=== PATIENT | male | born 1995 | race Caucasian/White ===

== ENCOUNTER 2019-01-27 11:41 | Emergency (ER) | payer OTHER ==
[2019-01-27 11:55] VITALS: BMI 25.1
[2019-01-27 11:57] VITALS: RESP 18
[2019-01-27] MEDS ORDERED: Sodium Chloride 0.9% 1,000 ML IV ONE ×2 (12:17→12:45)
[2019-01-27 12:46] LABS: EOS % 0.2 % (0.0-4.0); HEMOGLOBIN 15.8 g/dL (12.0-18.0); LYMPH # 0.4 K/uL (1.0-4.3); MEAN CELL VOLUME 95.9 fl (80.0-94.0); MEAN CORPUSCULAR HEMOGLOBIN 32.1 pg (27.0-31.0); MEAN CORPUSCULAR HGB CONC 33.4 g/dL (33.0-37.0); MEAN PLATELET VOLUME 8.6 fl (7.2-11.7); MONO # 0.4 K/uL (0.0-0.8); MONO % 7.3 % (0.0-10.0); NEUT # 4.7 K/uL (1.8-7.0); NEUT % 84.5 % (50.0-75.0); PLATELET COUNT 226 K/uL (130-400); RBC 4.92 Mil/uL (4.40-5.90); RED CELL DISTRIBUTION WIDTH 12.3 % (11.5-14.5); WHITE BLOOD COUNT 5.6 K/uL (4.8-10.8)
[2019-01-27 12:47] LABS: URINE BILIRUBIN NEGATIVE (NEGATIVE); URINE BLOOD NEGATIVE (NEGATIVE); URINE CLARITY CLEAR (Clear); URINE COLOR YELLOW (YELLOW); URINE GLUCOSE (UA) NEG (NEGATIVE); URINE LEUKOCYTE ESTERASE NEG Leu/uL (Negative); URINE PROTEIN NEGATIVE (NEGATIVE); URINE UROBILINOGEN 0.2-1.0 mg/dL (0.2-1.0)
[2019-01-27 12:58] LABS: ALB/GLOB RATIO 1.3 (1.0-2.1); ALBUMIN 4.3 g/dL (3.5-5.0); ALT/SGPT 40 U/L (21-72); AST/SGOT 29 U/L (17-59); BLOOD UREA NITROGEN 14 mg/dl (9-20); CALCIUM 9.4 mg/dL (8.4-10.2); GFR NON-AFRICAN AMERICAN > 60
--- NOTE | 2019-01-27 13:01 | ED PDOC ---
HPI: Abdomen Time Seen by Provider: 01/27/19 12:00 Chief Complaint (Nursing): GI Problem Chief Complaint (Provider): Nausea, vomiting, dairrhea History Per: Patient History/Exam Limitations: no limitations Onset/Duration Of Symptoms: Days Outside of [place] travel?: No Current Symptoms Are (Timing): Still Present Additional History Per: Patient Additional Complaint(s): 23yo male, otherwise healthy, comes to ER reporting nausea, vomiting, diarrhea and associated bodyaches, subjective fever since 3AM today. Patient reports last episode of vomiting was at 6 AM after taking Angelica-seltzer. He also reports constant non-bloody, watery diarrhea; no complaints of urinary symptoms. Patient also denies any recent travels, sick contacts, new food intake or antibiotics use. Reports eating pasta and chicken last night that he prepared. Patient called his PMD and was instructed to come to the ER for further evaluation. PMD: Liv Past Medical History Reviewed: Historical Data, Nursing Documentation, Vital Signs Vital Signs: Last Vital Signs Temp 100.2 F H 01/27/19 12:07 Pulse 95 H 01/27/19 12:07 Resp 18 01/27/19 12:07 BP 131/69 01/27/19 12:07 Pulse Ox 99 01/27/19 12:07 - Medical History PMH: No Chronic Diseases - Surgical History Surgical History: No Surg Hx - Family History Family History: States: No Known Family Hx, Unknown Family Hx - Living Arrangements Living Arrangements: With Family - Immunization History Hx Tetanus Toxoid Vaccination: No Hx Influenza Vaccination: No Hx Pneumococcal Vaccination: No - Home Medications Home Medications: Ambulatory Orders Medication Instructions Recorded Fluticasone Nasal [Flonase] 1 actuation NS BID #1 bottle 02/16/16 Ibuprofen 600 mg PO Q6 PRN #15 tablet 02/16/16 Oseltamivir Cap [Tamiflu] 75 mg PO BID #9 cap 02/16/16 guaiFENesin/Dextromethorphan 1 - 2 tab PO Q12 #20 tab 02/16/16 [guaiFENesin/DM 600-30 mg] Acetaminophen [Acetaminophen ER] 650 mg PO Q6 PRN #20 tablet.er 01/27/19 Dicyclomine [Bentyl] 20 mg PO Q6 #12 tab 01/27/19 Ondansetron ODT [Zofran ODT] 4 mg PO TID PRN #12 odt 01/27/19 - Allergies Allergies/Adverse Reactions: Allergies Allergy/AdvReac Type Severity Reaction Status Date / Time No Known Allergies Allergy Verified 02/15/16 22:22 Review of Systems ROS Statement: Except As Marked, All Systems Reviewed And Found Negative Constitutional: Positive for: Fever, Other (bodyaches) Gastrointestinal: Positive for: Nausea, Vomiting, Diarrhea Genitourinary Male: Negative for: Dysuria, Frequency, Hematuria Physical Exam - Reviewed Nursing Documentation Reviewed: Yes Vital Signs Reviewed: Yes - Physical Exam Appears: Positive for: Non-toxic, Uncomfortable Head Exam: Positive for: ATRAUMATIC, NORMAL INSPECTION, NORMOCEPHALIC Skin: Positive for: Normal Color Eye Exam: Positive for: Normal appearance Neck: Positive for: Supple Cardiovascular/Chest: Positive for: Regular Rate, Rhythm. Negative for: Tachycardia Respiratory: Positive for: Normal Breath Sounds. Negative for: Respiratory Distress Gastrointestinal/Abdominal: Positive for: Bowel Sounds (hypoactive), Soft, Tenderness (diffuse). Negative for: Organomegaly, Mass, Guarding, Rebound Back: Positive for: Normal Inspection Extremity: Positive for: Normal ROM Neurological/Psych: Positive for: Awake, Alert, Normal Tone, Oriented (x 3) - Laboratory Results Result Diagrams: 01/27/19 12:25 01/27/19 12:25 Lab Results: Total Bilirubin 0.8 mg/dl (0.2-1.3) 01/27/19 12:25 AST 29 U/L (17-59) 01/27/19 12:25 ALT 40 U/L (21-72) 01/27/19 12:25 Alkaline Phosphatase 49 U/L (38-126) 01/27/19 12:25 Total Protein 7.5 G/DL (6.3-8.2) 01/27/19 12:25 Albumin 4.3 g/dL (3.5-5.0) 01/27/19 12:25 Globulin 3.2 gm/dL (2.2-3.9) 01/27/19 12:25 Albumin/Globulin Ratio 1.3 (1.0-2.1) 01/27/19 12:25 - ECG O2 Sat by Pulse Oximetry: 99 (RA) Pulse Ox Interpretation: Normal Medical Decision Making Medical Decision Makinyo male with bodyaches, nausea, vomiting and diarrhea Plan: -- Labs -- IV fluids -- Urinalysis -- Rapid flu -- Toradol 30mg IV -- Pepcid 20mg IV -- Zofran 4mg IV 14:15 on re eval pt reports feeling better, he feels hungry, bodyaches have improved, no longer nauseous, no episodes of diarrhea while here, will recheck vitals and po trial 14:40 re eval pt is tolerating PO liquids with no problems, reports feeling better, pulse is 87 while i am observing, will check temp Pt's temp has come down, he is feeling much better Pt tolerating PO, no nausea, no episodes of vomiting or diarrhea while here,abdomen soft and non tender, labs wnl, likely viral gastroenteritis Discussed results, diagnosis, treatment, return precautions and f/u with pt who is understanding, in agreement and stable for dc Scribe Attestation: Documented by Jackelyn Alvarez, acting as a scribe for Miles Adams PA-C Provider Scribe Attestation: All medical record entries made by the Scribe were at my direction and personally dictated by me. I have reviewed the chart and agree that the record accurately reflects my personal performance of the history, physical exam, medical decision making, and the department course for this patient. I have also personally directed, reviewed, and agree with the discharge instructions and disposition. Disposition - Clinical Impression Clinical Impression: Gastroenteritis - Patient ED Disposition Is Patient to be Admitted: No Counseled Patient/Family Regarding: Studies Performed, Diagnosis, Need For Followup, Rx Given - Disposition Referrals: Seth Peck MD [Family Provider] - Disposition: Routine/Home Disposition Time: 14:48 Condition: IMPROVED Additional Instructions: Return to ED for new or worsening symptoms, fever not controlled with Tylenol or Ibuprofen, unable to tolerate liquids, worsening abdominal pain. Follow up with your primary doctor in 2-3 days. Take medications as prescribed. Alternate between Tylenol and Ibuprofen as needed for fever and/or pain. Rest, drink plenty of fluids to stay hydrated - water, gatorade. Eat a bland diet - BRAT (bananas, rice, applesauce, toast) Prescriptions: Acetaminophen [Acetaminophen ER] 650 mg PO Q6 PRN #20 tablet.er PRN Reason: Fever >100.4 F Dicyclomine [Bentyl] 20 mg PO Q6 #12 tab Ondansetron ODT [Zofran ODT] 4 mg PO TID PRN #12 odt PRN Reason: Nausea/Vomiting Instructions: Viral Gastroenteritis, Adult (DC) Forms: [facility] (Slovak), [facility] ED School/Work Excuse Print Language: CITIZEN OF [place] - POA Present On Arrival: None
[2019-01-27 13:45] LABS: BANDS 2 % (0-2); BASOPHIL 1 % (0-2); LYMPHOCYTE 10 % (20-50); MONOCYTE 5 % (0-10); NEUTROPHIL 79 % (42-75); REACTIVE LYMPHOCYTES 3 % (0-0); TOTAL CELLS COUNTED 100
[2019-01-27 13:46] LABS: PLATELET ESTIMATE NORMAL (NORMAL)
[2019-01-27 13:47] LABS: TEARDROP CELLS SLIGHT; TOXIC GRANULATION PRESENT
[2019-01-27 14:52] VITALS: PULSE 92
[2019-01-27 15:32] VITALS: BP 118/65; TEMP 99
[2019-01-27 15:54] VITALS: O2SAT 99
== END 2019-01-27 15:30 | disposition home or self-care (01) ==
LOC: H.ER 11:41
DX: K52.9 Noninfective gastroenteritis and colitis, unspecified (principal)
CPT/HCPCS: 80053; 81003; 85025; 87804; 96361; 96374; 96375; 99284; J1885; J2405; J7030